=== PATIENT | female | born 1995 | race African-American/Black ===

== ENCOUNTER 2017-06-10 17:28 | Emergency (ER) | payer BC ==
[~2017-06-10] VITALS: Ht 170.2 cm; Wt 81.6 kg
--- NOTE | ~2017-06-10 | EKG ---
PATIENT: DONALDO GUDINO UNIT #: [id number] Ventricular Rate: 57 BPM Atrial Rate: 57 BPM P-R Interval: 152 ms QRS Duration: 84 ms Q-T Interval: 424 ms QTC Calculation(Bezet): 412 ms P [place]: 52 degrees Calculated R [place]: 45 degrees Calculated T [place]: 12 degrees Diagnosis Line: Sinus bradycardia Diagnosis Line: Otherwise normal ECG Diagnosis Line: When compared with ECG of 24-DEC-2012 20:47, Diagnosis Line: No significant change was found Diagnosis Line: Confirmed by HEVER NAVARRO MD ([id number]) on 06/11/2017 Diagnosis Line: 7:36:57 PM INTERPRETING MD: RAMON IBARRA
[~2017-06-10 17:28] MED LIST: BACTRIM 400-801 TA1 PO; DICYCLOMINE HCL20 MG PO; PHENERGAN25 MG PO; PYRIDIUM PO; ZYRTEC10 M1 PO
[2017-06-10 18:44] LABS: BASOPHIL% 0.4 % (0-2.5); EOSINOPHIL% 0.3 % (0.0-7.0); HEMATOCRIT 40.2 % (35.0-45.0); HEMOGLOBIN 13.6 gm/dL (12.0-16.0); LYMPHOCYTE# 2.3 X10e3 (1.0-3.5); MEAN CELL VOLUME 88.1 FL (83-96); MEAN CORPUSCULAR HEMOGLOBIN 29.8 PG (28-34); MEAN CORPUSCULAR HGB CONC 33.8 g/dL (30-36); MEAN PLATELET VOLUME 9.5 FL (6.5-11.5); MONOCYTE# 0.3 X10e3 (0-1.0); MONOCYTE% 6.6 % (3.0-12.0); NEUTROPHIL# 2.5 X10e3 (1.5-7.1); NEUTROPHIL% 47.7 % (40-75); PLATELET COUNT 280 X10e3 (140-420); RED BLOOD COUNT 4.56 X10e (3.90-5.30); RED CELL DISTRIBUTION WIDTH 13.6 % (11.0-15.5); WHITE BLOOD COUNT 5.2 X10e3 (4.0-10.5)
[2017-06-10 18:46] LABS: DIFF IND NO
[2017-06-10 18:49] LABS: URINE SOURCE CLEAN CATCH
[2017-06-10 18:55] LABS: URINE APPEARANCE CLEAR; URINE BILIRUBIN NEG (NEG); URINE BLOOD NEG (NEG); URINE COLOR YELLOW; URINE GLUCOSE NEG (NEG); URINE KETONE TRACE (NEG); URINE LEUKOCYTE ESTERASE NEG (NEG); URINE NITRATE NEG (NEG); URINE PROTEIN NEG (NEG); URINE SPECIFIC GRAVITY 1.027 (1.003-1.035)
[2017-06-10 18:59] LABS: BUN/CREATININE RATIO 13.33; CALCIUM SERUM 9.3 mg/dL (8.4-10.2); CREATININE SERUM 0.9 mg/dL (0.6-1.4); GLOM FILT RATE Estimated 103.8 mL/min (>60); POTASSIUM 3.6 mmol/L (3.5-5.1)
== END 2017-06-10 19:58 | disposition home or self-care (01) ==
LOC: CED 17:28
PROVIDERS: Emergency Medicine
DX: R42 Dizziness and giddiness (principal)
CPT/HCPCS: 36415; 80048; 81003; 84703; 85025; 93005; 99284